=== PATIENT | male | born 1950 | race Caucasian/White ===

== ENCOUNTER → 2016-12-19 | Day surgery (SDC) | payer BC ==
[2016-12-17 11:06] VITALS: BMI 25.0
[~2016-12-19] VITALS: Ht 188 cm; Wt 87.7 kg
[~2016-12-19] MED LIST: APIX1TAB3 PO; CETI10TA84 PO; FENTANYL CITRATE INJ 50 MCG/1 ML 2 ML VIAL ONE; IPRA1AER2 INH; MIDAZOLAM HCL 1 MG/ML 2ML VIAL ONE; MOME1AER5 INH; MULT-506 PO; OMEGCAP2 PO; OMEP20CA59 PO; PROPOFOL IV EMULSION 10 MG/ML 20 ML VIAL IV ONE
[2016-12-19 14:18] VITALS: Ht 188 cm; Wt 87.7 kg
--- NOTE | 2016-12-19 15:51 | Endo History and Physical ---
History & Physical Date of Service: December 19, 2016. Chief Complaint: hx barretts Referring Physician: Dr. Edward History of Present Illness 66 yo CM who presents for EGD secondary to history of Reyes's Esophagus. Past Surgical History Hx Cardiac Surgery: No Hx Internal Defibrillator: No Hx Pacemaker: No Hx Abdominal Surgery: No Hx of Implantable Prosthesis: No Hx Post-Op Nausea and Vomiting: No Hx Cancer Surgery: No Hx Thoracic Surgery: No Hx Orthopedic: No Hx Urinary Tract Surgery: No Family History Polyp Social History Smoking Status: Never Smoker Hx Substance Use: No Hx Alcohol Use: Yes (1 GLASS OF WINE AT [employer] ON AVERAGE) Allergies Coded Allergies: Penicillins (Verified Allergy, Unknown, RASH/HIVES, 12/19/16) Shellfish (Verified Allergy, Unknown, ANAPHYLAXIS, 12/19/16) Uncoded Allergies: ENVIRONMENTAL ALLERGIES (Allergy, Unknown, DUST/MOLD/GRASS/POLLEN, 12/17/16) Current Medications Reported Home Medications Medications Dose Route/Sig Max Daily Dose Days Date Category Fish Oil ([place]-3 Fatty Acids) 1 Cap Cap 1 Cap PO QAM 12/17/16 Reported Multivitamin (Multivitamins) Tab 1 Tab PO QAM 12/17/16 Reported Zyrtec (Cetirizine HCl) 10 Mg Tab 10 Mg PO QAM 12/17/16 Reported Asmanex Hfa (Mometasone Furoate (Inhalation) 200 Mcg/Act Aer 1 Puffs INH QAM 12/17/16 Reported Prilosec (Omeprazole) 20 Mg Capcr 20 Mg PO QAM 12/17/16 Reported Eliquis (Apixaban) 5 Mg Tab 5 Mg PO BID 12/17/16 Reported Combivent Respimat (Ipratropium-Albuterol) 1 Aer Aer 2 Puffs INH QID PRN 05/12/13 Reported Vital Signs Weight (Kilograms): 87.73 Height (Feet): 6 Height (Inches): 2 Date Time Temp Pulse Resp B/P Pulse Ox O2 Delivery O2 Flow Rate FiO2 12/19/16 14:26 36.6 66 20 113/74 97 Room Air Physical Exam General Appearance: WD/WN, no apparent distress Respiratory/Chest: Auscultation: breath sounds normal Cardiovascular: Heart Auscultation: RRR Abdomen: Bowel Sounds: normal Inspection & Palpation: soft, non-distended, no tenderness, guarding & rebound Assessment and Plan Assessment: 66 yo CM who presents for EGD secondary to history of Ryees's Esophagus. Plan: Proceed with EGD.
--- NOTE | 2016-12-19 16:20 | Discharge Instructions ---
Endoscopy Patient Instructions Date / Procedure(s) Performed December 19, 2016. EGD Allergy Information Coded Allergies: Penicillins (Verified Allergy, Unknown, RASH/HIVES, 12/19/16) Shellfish (Verified Allergy, Unknown, ANAPHYLAXIS, 12/19/16) Uncoded Allergies: ENVIRONMENTAL ALLERGIES (Allergy, Unknown, DUST/MOLD/GRASS/POLLEN, 12/17/16) Discharge Date / Findings December 19, 2016. Biopsies of distal esophagus Medication Instructions Stopped Medication(s): Adisis OK to resume all medications today as prescribed Reported Home Medications Medications Dose Route/Sig Max Daily Dose Days Date Category Fish Oil ([place]-3 Fatty Acids) 1 Cap Cap 1 Cap PO QAM 12/17/16 Reported Multivitamin (Multivitamins) Tab 1 Tab PO QAM 12/17/16 Reported Zyrtec (Cetirizine HCl) 10 Mg Tab 10 Mg PO QAM 12/17/16 Reported Asmanex Hfa (Mometasone Furoate (Inhalation) 200 Mcg/Act Aer 1 Puffs INH QAM 12/17/16 Reported Prilosec (Omeprazole) 20 Mg Capcr 20 Mg PO QAM 12/17/16 Reported Eliquis (Apixaban) 5 Mg Tab 5 Mg PO BID 12/17/16 Reported Combivent Respimat (Ipratropium-Albuterol) 1 Aer Aer 2 Puffs INH QID PRN 05/12/13 Reported Provider Instructions Activity Restrictions - No exercising or heavy lifting for 24 hours. - Do not drink alcohol the day of the procedure. - Do not drive a car or operate machinery until the day after the procedure. - Do not make any important decisions or sign important papers in 24 hours after the procedure. Following Day: - Return to full activity which may include returning to work/school. Diet Start your diet with liquids and light foods (jello, soup, juice, toast). Then eat your usual diet if not nauseated. Treatment For Common After Affects For mild abdominal pain, bloating, or excessive gas: - Rest - Eat lightly - Lie on right side Follow-Up Information Follow-up with Dr. Edward as scheduled Anesthesia Information What You Should Know You have had a procedure that required some medicine to reduce anxiety and discomfort. This treatment is called moderate sedation. After receiving the treatment, you may be sleepy, but you will be able to breathe on your own. The effects of the treatment may last for several hours. Follow these instructions along with Activity/Diet recommendations noted above: * Do NOT do anything where dizziness or clumsiness would be dangerous. * Rest quietly at home today, then you can be up and about tomorrow. * Have a responsible person stay with you the rest of today. * You may have had an I.V. today. If so, you may take the dressing off later today. Recommendations Call your doctor if: * Trouble breathing * Continuous vomiting for more than 24 hours * Temperature above 101 degrees * Severe abdominal pain or bloating * Pain not relieved by pain medicine ordered * There is increased drainage or redness from any incision * A large amount of rectal bleeding greater than 2-3 tablespoons. (If you had a polyp/s removed or have hemorrhoids, a small amount of blood - from the rectum is to be expected.) * You have any unanswered questions or concerns. IN THE EVENT OF A SERIOUS EMERGENCY, GO TO THE NEAREST EMERGENCY ROOM Your discharge instructions were prepared by provider Best Price. Patient Instructions Signature Page Gregg Connor Patient (or Guardian) Signature/Date: I have read and understand the instructions given to me by my caregivers. Caregiver/RN/Doctor Signature/Date: The above-named patient and/or guardian has received patient instructions on this date. + Original Patient Signature Page (only) stays with chart. Please make copy for patient.
--- NOTE | 2016-12-19 16:22 | Anesthesiology Progress Note ---
Anesthesia Post Op Note Date & Time December 19, 2016 at 16:22 Vital Signs Pain Intensity: 0 Vital Signs Past 12 Hours Date Time Temp Pulse Resp B/P Pulse Ox O2 Delivery O2 Flow Rate FiO2 12/19/16 16:09 73 14 118/73 97 Room Air 12/19/16 14:26 36.6 66 20 113/74 97 Room Air Notes Mental Status: alert / awake / arousable, participated in evaluation Pt Amnestic to Procedure: Yes Nausea / Vomiting: adequately controlled Pain: adequately controlled Airway Patency, RR, SpO2: stable & adequate BP & HR: stable & adequate Hydration State: stable & adequate Anesthetic Complications: no major complications apparent Pt doing well.
--- NOTE | 2016-12-19 16:24 | GI REPORT ---
Procedure Date: 12/19/2016 3:17 PM Procedure: Upper GI endoscopy Indications: Gastro-esophageal reflux disease Medicines: Monitored Anesthesia Care Complications: No immediate complications. Estimated Blood Loss: Estimated blood loss: none. Procedure: Pre-Anesthesia Assessment: - Prior to the procedure, a History and Physical was performed, and patient medications and allergies were reviewed. The patient's tolerance of previous anesthesia was also reviewed. The risks and benefits of the procedure and the sedation options and risks were discussed with the patient. All questions were answered, and informed consent was obtained. Prior Anticoagulants: The patient has taken Eliquis (apixaban), last dose was 2 days prior to procedure. ASA Grade Assessment: III - A patient with severe systemic disease. After reviewing the risks and benefits, the patient was deemed in satisfactory condition to undergo the procedure. After obtaining informed consent, the endoscope was passed under direct vision. Throughout the procedure, the patient's blood pressure, pulse, and oxygen saturations were monitored continuously. The scope was introduced through the mouth, and advanced to the second part of duodenum. The upper GI endoscopy was accomplished without difficulty. The patient tolerated the procedure well. Findings: There were esophageal mucosal changes suggestive of short-segment Reyes's esophagus present at the gastroesophageal junction. The maximum longitudinal extent of these mucosal changes was 2 cm in length. Mucosa was biopsied with a cold forceps for histology. One specimen bottle was sent to pathology. The stomach was normal. The examined duodenum was normal. Impression: - Esophageal mucosal changes suggestive of short-segment Reyes's esophagus. Biopsied. - Normal stomach. - Normal examined duodenum. Recommendation: - Resume previous diet. - Continue present medications. - Await pathology results. - Return to GI office as previously scheduled. Best Price DO 12/19/2016 4:24:36 PM This report has been signed electronically. Note Initiated On: 12/19/2016 3:17 PM I attest to the content of the Intraoperative Record and orders documented therein, exceptions below
[2016-12-19 16:39] VITALS: BP 116/80; PULSE 79; O2SAT 98
== END | disposition home or self-care (01) ==
LOC: C.GI 13:27
PROVIDERS: ATTEND Internal Medicine
DX: K22.70 Barrett's esophagus without dysplasia (principal); K21.9 Gastro-esophageal reflux disease without esophagitis; Z79.899 Other long term (current) drug therapy

== ENCOUNTER → 2017-07-18 | Outpatient (CLI) | payer BC ==
[~2017-07-18] MED LIST changes: -FENTANYL CITRATE INJ 50 MCG/1 ML 2 ML VIAL ONE; -MIDAZOLAM HCL 1 MG/ML 2ML VIAL ONE; -PROPOFOL IV EMULSION 10 MG/ML 20 ML VIAL IV ONE
[2017-07-18 13:12] LABS: BASO % 0.6 %; BASO ABS # 0.04 K/uL (0-0.2); COMPLETE YES; EOS % 2.9 %; HEMATOCRIT 49.9 % (42-52); IG% 0.3 %; LYMPH % 31.1 %; LYMPH ABS # 1.94 K/uL (1.2-3.4); MEAN CELL VOLUME 93.1 fL (80-100); MEAN CORPUSCULAR HEMOGLOBIN 32.8 pg (25-34); MEAN CORPUSCULAR HGB CONC 35.3 g/dl (32-36); MEAN PLATELET VOLUME 11.8 fL (7.4-10.4); MONO % 8.8 %; NEUT % 56.3 %; PLATELET COUNT 205 K/uL (130-400); RED BLOOD COUNT 5.36 M/uL (4.7-6.1); WHITE BLOOD COUNT 6.24 K/uL (4.8-10.8)
[2017-07-18 13:45] LABS: ALT/SGPT 29 U/L (12-78); AST/SGOT 20 U/L (15-37); BLOOD UREA NITROGEN 20 mg/dl (7-18); BUN/CREATININE RATIO 13.8 (10-20); CALCIUM 8.9 mg/dl (8.5-10.1); CARBON DIOXIDE 26 mmol/L (21-32); CHLORIDE 105 mmol/L (98-107); CREATININE 1.44 mg/dl (0.60-1.40); GLUCOSE 90 mg/dl (70-99); POTASSIUM 4.1 mmol/L (3.5-5.1); SODIUM 137 mmol/L (136-145)
[2017-07-18 13:48] LABS: ALKALINE PHOSPHATASE 79 U/L (45-117); CHOLESTEROL 193 mg/dl (0-200); CHOLESTEROL/HDL RATIO 3.3; HDL CHOLESTEROL 58 mg/dl; TRIGLYCERIDES 170 mg/dl (0-150); VERY LOW DENSITY LIPOPROT CALC 34 mg/dl
== END | disposition home or self-care (01) ==
LOC: C.LABSPEC 12:30
PROVIDERS: ATTEND Internal Medicine
DX: I48.91 Unspecified atrial fibrillation (principal); E78.5 Hyperlipidemia, unspecified; Z11.59 Encounter for screening for other viral diseases